=== PATIENT | female | born 1995 | race Caucasian/White ===

== ENCOUNTER 2017-04-28 05:03 | Emergency (ER) | payer MEDICAID ==
[~2017-04-28] VITALS: Ht 152.4 cm; Wt 100.2 kg
[2017-04-28 05:08] VITALS: BP 130/72
--- NOTE | 2017-04-28 05:13 | NUR ---
PT TAKEN TO BED 6
--- NOTE | 2017-04-28 05:17 | NUR ---
PATIENT PRESENTS TO ED WITH LOWER ABD PAIN, FOR 3DAYS, WITH HEMATURIA.PT VERBALIZED WHEN I PEE IT BURN AND I FELL NAUSEOUS. DENIES /V/D; SKIN IS PINK/WARM/DRY; AAOX4 WITH EVEN AND STEADY GAIT; LUNGS CLEAR BL; HR EVEN AND REGULAR; PT DENIES ANY FEVER, CP, SOB, OR COUGH AT THIS TIME; PATIENT STATES PAIN OF 9/10 AT THIS TIME; PATIENT POSITIONED FOR COMFORT; HOB ELEVATED; BEDRAILS UP X2; BED DOWN. ER MD MADE AWARE OF PT STATUS.
--- NOTE | 2017-04-28 05:37 | NUR ---
Dr. Munoz evaluating patient at bedside.
[2017-04-28] MEDS ORDERED: LEVOFLOXACIN 500 MG TAB PO ONE (05:50)
[2017-04-28] MEDS ORDERED: PHENAZOPYRIDINE 100 MG TAB PO ONE (05:50)
[2017-04-28 06:14] VITALS: BP 130/72
--- NOTE | 2017-04-28 06:15 | NUR ---
Patient discharged with v/s stable. Written and verbal after care instructions given and explained. Patient alert, oriented and verbalized understanding of instructions. Ambulatory with steady gait. All questions addressed prior to discharge. ID band removed. Patient advised to follow up with PMD. Rx of MACROBID AND PYRIDIUM given. Patient educated on indication of medication including possible reaction and side effects. Opportunity to ask questions provided and answered. ENCOURAGED FLUID INTAKE AND PT AGREED WITH IT
== END 2017-04-28 06:15 | disposition home or self-care (01) ==
LOC: MED 05:03
DX: N30.01 Acute cystitis with hematuria (principal); R03.0 Elevated blood-pressure reading, without diagnosis of hypertension
CPT/HCPCS: 81002; 81025; 99283

== ENCOUNTER 2017-07-02 22:29 | Emergency (ER) | payer MEDICAID ==
[~2017-07-02] VITALS: Ht 152.4 cm; Wt 102.1 kg
[2017-07-02 22:42] VITALS: BP 140/81
[2017-07-02] MEDS ORDERED: IBUP-1842 PO (23:08)
[2017-07-02] MEDS ORDERED: AMOX500C25 PO (23:09)
--- NOTE | 2017-07-02 23:14 | NUR ---
PT TAKEN TO BED 6
--- NOTE | 2017-07-02 23:23 | NUR ---
Dr. Jeffrey evaluating patient at bedside.
--- NOTE | 2017-07-02 23:25 | NUR ---
21 Y/O F W/C/O TOOHACHE WITH FACE SWOLLEN ON THE LT. SIDE X 3 DAYS. MOTRIN TAKEN AT 1800, AMOXICILLIN 500 MG TAKEN ON HER OWN. APPOINTMENT WITH DENTIST TOMORROW. NO MEDICAL HX. NO OTHER S/S OF DISTRESS NOTED, ER MD MADE AWARE.
[2017-07-02 23:34] VITALS: BP 110/77
--- NOTE | 2017-07-02 23:44 | NUR ---
Patient discharged with v/s stable. Written and verbal after care instructions given and explained. Patient alert, oriented and verbalized understanding of instructions. Ambulatory with steady gait. All questions addressed prior to discharge. ID band removed. Patient advised to follow up with DENTIST. RX of NORCO given. Patient educated on indication of medication including possible reaction and side effects. Opportunity to ask questions provided and answered.
== END 2017-07-02 23:44 | disposition home or self-care (01) ==
LOC: MED 22:29
DX: K08.89 Other specified disorders of teeth and supporting structures (principal)
CPT/HCPCS: 99283

== ENCOUNTER 2018-10-02 18:10 | Emergency (ER) | payer MEDICAID ==
[~2018-10-02] VITALS: Ht 152.4 cm; Wt 87.5 kg
[~2018-10-02 18:10] MED LIST: AMOX500C25 PO; IBUP-1842 PO
[2018-10-02 18:27] VITALS: BP 114/71
--- NOTE | 2018-10-02 18:45 | NUR ---
22F BIB SELF C/O 05/23 HEADACHE X YESTERDAY. + BLURRY VISION, + DIZZINESS, + VOMITING X 2 TODAY, -DIARRHEA, PT ALSO STATES HER STOMACH IS HURTING, FEELS LIKE SOMETHING INSIDE JUMPING. PT WITH STEADY GAIT. PT IS AOX4 TO PERSON, PLACE, TIME, AND SITUATION. RR ARE EVEN AND UNLABORED. ABD SOFT AND NON TENDER. NAD. VSS. AWAITING ER MD GUERRA. WILL CONTINUE TO MONITOR.
--- NOTE | 2018-10-02 19:14 | NUR ---
Pt report given to Shama MCNAMARA. Transfer of care at this time.
--- NOTE | 2018-10-02 20:21 | NUR ---
PA AT BEDSIDE
[2018-10-02 20:53] VITALS: BP 111/68
--- NOTE | 2018-10-02 20:54 | NUR ---
Patient discharged with v/s stable. Written and verbal after care instructions given and explained. Patient alert, oriented and verbalized understanding of instructions. Ambulatory with to car. All questions addressed prior to discharge. ID band removed. Patient advised to follow up with PMD. Rx of antivert, motrin given. Patient educated on indication of medication including possible reaction and side effects. Opportunity to ask questions provided and answered.
== END 2018-10-02 20:54 | disposition home or self-care (01) ==
LOC: MED 18:10
DX: M54.2 Cervicalgia (principal); R42 Dizziness and giddiness; Z79.899 Other long term (current) drug therapy
CPT/HCPCS: 81002; 81025; 82948; 99283

== ENCOUNTER 2018-11-30 18:35 | Emergency (ER) | payer MEDICAID ==
[~2018-11-30] VITALS: Ht 152.4 cm; Wt 88.2 kg
[2018-11-30 19:04] VITALS: BP 118/76
--- NOTE | 2018-11-30 19:43 | NUR ---
PT BIB SELF FOR COUGH X2 DAYS. PT REPORTS CONSTANT MOIST/PRODUCTIVE COUGH AND THAT SHE COUGHED UP BRIGHT RED BLOOD TODAY. PT DENIES SOB, AIRWAY IS PATENT, RR SYMMETRICAL AND NON-LABORED, LUNG SOUNDS CLEAR THROUGHOUT. PT REPORTS PRESSURE HEADACE ON THE TOP OF HER HEAD, AND ACHY CP WHEN SHE COUGHS. PT AAOX4. VSS. ER MD TO SEE PT. HOB ELEVATED, BED IN LOWEST POSITION, SIDE RAILS UP X1. WILL CONTINUE TO MONITOR.
[2018-11-30] MEDS ORDERED: KETOROLAC 30 MG/ML VIAL IM ONE (19:50)
--- NOTE | 2018-11-30 20:44 | NUR ---
PT GOING TO X-RAY AT THIS TIME.
--- NOTE | 2018-11-30 20:48 | NUR ---
PT RETURNED FROM X-RAY AT THIS TIME.
--- NOTE | 2018-11-30 21:18 | NUR ---
PT RESTING IN BED COMFORTABLY. VSS. PT DENIES PAIN OR NAUSEA AT THIS TIME. NO SIGNS OF ACUTE DISTRESS. WILL CONTINUE TO MONITOR.
[2018-11-30 21:44] VITALS: BP 112/56
--- NOTE | 2018-11-30 21:44 | NUR ---
Patient discharged with v/s stable. Written and verbal after care instructions given and explained. Patient alert, oriented and verbalized understanding of instructions. Ambulatory with steady gait. All questions addressed prior to discharge. ID band removed. Patient advised to follow up with PMD. Rx of CODEINE/PROMETHAZINE, IBUPROFEN, AND TESSALON given. Patient educated on indication of medication including possible reaction and side effects. Opportunity to ask questions provided and answered.
== END 2018-11-30 21:44 | disposition home or self-care (01) ==
LOC: MED 18:35
DX: R05 Cough (principal); R07.9 Chest pain, unspecified; R50.9 Fever, unspecified; Z79.899 Other long term (current) drug therapy
CPT/HCPCS: 36415; 71045; 81002; 81025; 87804; 96372; 99284; J1885

== ENCOUNTER 2019-03-30 11:56 | Emergency (ER) | payer MEDICAID ==
[~2019-03-30] VITALS: Ht 152.4 cm; Wt 88.5 kg
[2019-03-30 12:03] VITALS: BP 118/65
--- NOTE | 2019-03-30 12:07 | NUR ---
Patient ambulated to bed 3 with family. RN evaluating patient at bedside.
--- NOTE | 2019-03-30 12:08 | NUR ---
Dr. Vang evaluating patient at bedside.
--- NOTE | 2019-03-30 12:08 | NUR ---
23 Y FEMALE BIB BOYFRIEND C/O LEFT LOWER QUADRANT PAIN, FLANK PAIN, DYSURIA 910 X3 WKS. +CONSTIPATION. LAST BM 4 DAYS AGO. -N/V. BOWEL SOUNDS ACTIVE IN ALL 4 QUADRANTS. ABDOMEN SOFT AND ROUND, NON-TENDER. STATES SHE HAS TAKEN TYLENOL WITH NO RELIEF. VSS AT THIS TIME. PT AA0X4. BED IS DOWN, LOCKED, BED RAIL X 1, ERMD TO SEE PT. NO MED HX.
[2019-03-30] MEDS ORDERED: KETOROLAC 60 MG/2 ML VIAL IM ONE (12:15)
--- NOTE | 2019-03-30 12:17 | NUR ---
PT AMB TO RESTROOM WITH STEADY GAIT
[2019-03-30 12:52] LABS: ANION GAP 9.8 (8-16); CARBON DIOXIDE 30.4 mmol/L (21-32); CREATININE 0.6 mg/dL (0.6-1.3); POTASSIUM 4.2 mmol/L (3.5-5.1)
[2019-03-30 12:58] LABS: ALBUMIN 3.4 g/dL (3.4-5.0); TOTAL BILIRUBIN 0.2 mg/dL (0.0-1.0)
[2019-03-30 13:00] LABS: BILIRUBIN,URINE NEGATIVE (NEGATIVE); BLOOD, URINE NEGATIVE (NEGATIVE); COLOR,URINE YELLOW (YELLOW); LEUKOCYTE ESTERASE ,URINE NEGATIVE (NEGATIVE); NITRITE, URINE NEGATIVE (NEGATIVE); PH,URINE 6.5 (5.0-9.0); UGLUCOSE NEGATIVE (NEGATIVE)
--- NOTE | 2019-03-30 13:00 | NUR ---
PAIN 4/10 AFTER TORADOL IM INJECTION.
[2019-03-30 13:04] LABS: APPEARANCE,URINE SLIGHTLY HAZY (CLEAR)
[2019-03-30 13:07] LABS: RBC,URINE NONE SEEN /HPF (0-5); WBC,URINE 0-5 /HPF (0-5)
[2019-03-30 15:20] VITALS: BP 125/72
--- NOTE | 2019-03-30 15:20 | NUR ---
Patient discharged with v/s stable. Written and verbal after care instructions given and explained. Patient alert, oriented and verbalized understanding of instructions. Ambulatory with steady gait. All questions addressed prior to discharge. ID band removed. Patient advised to follow up with PMD. Rx of MIRALAX, CEPHALEXIN, COLACE given. Patient educated on indication of medication including possible reaction and side effects. Opportunity to ask questions provided and answered.
[2019-03-30 17:28] LABS: WHITE BLOOD COUNT (AUTO) 9.1 K/uL (4.8-10.8)
[2019-03-30 17:29] LABS: HEMATOCRIT 37.8 % (36-48); HEMOGLOBIN 12.9 g/dL (12.0-16.0); MEAN CORPUSCULAR HEMOGLOBIN 30 pg (27-31); MEAN CORPUSCULAR HGB CONC 34 g/dL (33-37); MEAN CORPUSCULAR VOLUME 88.4 fL (80-94); PLATELET COUNT (AUTO) 257 K/uL (140-450); RED BLOOD CELL COUNT(AUTO) 4.28 MIL/uL (4.20-5.40); RED CELL DISTRIBUTION WIDTH 12.9 % (11.6-13.7)
[2019-03-30 17:30] LABS: BASOPHILS % (AUTO) 0.4 % (0.0-2.0); EOSINOPHILS # (AUTO) 0.2 K/uL (0-0.4); EOSINOPHILS % (AUTO) 2.6 % (0.0-4.0); LYMPHOCYTES # (AUTO) 2.3 K/uL (2.5-16.5); LYMPHOCYTES % (AUTO) 25.5 % (20.5-51.1); MONOCYTES # (AUTO) 0.4 K/uL (0.8-1.0); MONOCYTES % (AUTO) 4.3 % (1.7-9.3); NEUTROPHILS # (AUTO) 6.1 K/uL (1.8-7.7); NEUTROPHILS % (AUTO) 67.2 % (42.2-75.2)
== END 2019-03-30 15:20 | disposition home or self-care (01) ==
LOC: MED 11:56
DX: K59.00 Constipation, unspecified (principal); R30.0 Dysuria; R35.0 Frequency of micturition; Z79.2 Long term (current) use of antibiotics; Z79.1 Long term (current) use of non-steroidal anti-inflammatories (NSAID); Z98.51 Tubal ligation status
CPT/HCPCS: 36415; 80053; 81001; 81025; 85025; 96372; 99283; J1885

== ENCOUNTER 2019-04-03 11:38 | Emergency (ER) | payer MEDICAID ==
[~2019-04-03] VITALS: Ht 152.4 cm; Wt 91.2 kg
[2019-04-03 11:41] VITALS: BP 116/98
--- NOTE | 2019-04-03 11:50 | NUR ---
CAME IN FOR RECHECK, WAS HERE ON SATURDAY FOR ABDOMINAL PAIN. . DENIES N/V/D; SKIN IS PINK/WARM/DRY; AAOX4 WITH EVEN AND STEADY GAIT; LUNGS CLEAR BL; HR EVEN AND REGULAR; PT DENIES ANY FEVER, CP, SOB, OR COUGH AT THIS TIME; PATIENT STATES PAIN OF 4/10 AT THIS TIME; VSS; PATIENT POSITIONED FOR COMFORT; HOB ELEVATED; BEDRAILS UP X2; BED DOWN. ER MD MADE AWARE OF PT STATUS.
[2019-04-03 12:00] VITALS: BP 116/98
--- NOTE | 2019-04-03 12:00 | NUR ---
Patient discharged with v/s stable. Written and verbal after care instructions given and explained. Patient verbalized understanding. Ambulatory with steady gait. All questions addressed prior to discharge. Advised to follow up with PMD.
== END 2019-04-03 11:59 | disposition home or self-care (01) ==
LOC: MED 11:38
DX: M79.18 Myalgia, other site (principal); R10.32 Left lower quadrant pain; R19.7 Diarrhea, unspecified; Z79.899 Other long term (current) drug therapy
CPT/HCPCS: 99281

== ENCOUNTER 2019-05-22 11:58 | Emergency (ER) | payer MEDICAID ==
[~2019-05-22] VITALS: Ht 152.4 cm; Wt 90.7 kg
--- NOTE | 2019-05-22 11:58 | NUR ---
PT. ENRIQUETA TAKE TO BED 9
[2019-05-22 12:05] VITALS: BP 122/78
--- NOTE | 2019-05-22 12:05 | NUR ---
23 Y/O FEMALE C/O OF DIZZINESS AND NUMBNESS AFTER TAKING 200 MG OF TRAMADOL FOR RIGHT KNEE PAIN AT A [employer] CLASS. KNEE PAIN STARTED YESTERDAY BUT DENIES PAIN AT THIS TIME. PER EMS, BLOOD GLUCOSE IS 116 MG/DL AND 4MG OF ZOFRAN WAS GIVEN. VSS STABLE. PMH: NONE RX:NONE ALLERGIES: NONE
[2019-05-22] MEDS ORDERED: NACL 0.9% 1,000 ML IV ONE ×2 (12:10→13:55)
--- NOTE | 2019-05-22 12:22 | NUR ---
X-RAY AT BEDSIDE.
--- NOTE | 2019-05-22 13:48 | NUR ---
PT. VOMITED 10ML OF GREEN/YELLOW VOMITUS. FINE TREMORS NOTED. NOTIFIED .
[2019-05-22] MEDS ORDERED: ONDANSETRON 4 MG/2 ML VIAL IVP ONE (13:50)
[2019-05-22] MEDS ORDERED: LORazepam 2 MG/ML VIAL IVP ONE (13:50)
--- NOTE | 2019-05-22 15:00 | NUR ---
PT STATES SHE IS STILL DIZZY, LETHARGIC. VSS. PER ER OKAY TO DISCHARGE.
[2019-05-22 15:01] VITALS: BP 111/72
--- NOTE | 2019-05-22 15:01 | NUR ---
Patient discharged with v/s stable. Written and verbal after care instructions given and explained. Patient verbalized understanding. PT WHEELCHAIRED TO CAR, WITH PT. All questions addressed prior to discharge. Advised to follow up with PMD.
--- NOTE | 2019-05-22 15:01 | NUR ---
Geno beard in ED - 05/22/19 at 1519 by JASON Patient discharged with v/s stable. Written and verbal after care instructions given and explained. Patient verbalized understanding. Ambulatory with steady gait. All questions addressed prior to discharge. Advised to follow up with PMD.
== END 2019-05-22 15:01 | disposition home or self-care (01) ==
LOC: MED 11:58
DX: T40.4X1A Poisoning by other synthetic narcotics, accidental (unintentional), initial encounter (principal); M25.561 Pain in right knee; R42 Dizziness and giddiness; Z79.899 Other long term (current) drug therapy; Y92.89 Other specified places as the place of occurrence of the external cause
CPT/HCPCS: 73562; 96361; 96374; 96375; 99283; J2060; J2405; J7030; Q0092

== ENCOUNTER 2020-03-23 14:29 | Emergency (ER) | payer MEDICAID ==
[~2020-03-23] VITALS: Ht 152.4 cm; Wt 87.5 kg
[2020-03-23 14:31] VITALS: BP 120/58
--- NOTE | 2020-03-23 14:37 | NUR ---
PT AMB TO BATHROOM STEADY GAIT TO PROVIDE URINE SAMPLE
--- NOTE | 2020-03-23 14:43 | NUR ---
DR. MYERS EVALUATING PT AT BEDSIDE
--- NOTE | 2020-03-23 14:46 | NUR ---
24/F APPROXIMATELY 8 WEEKS , LMP 01/27/20 C/O LOWER ABD/SUPRAPUBIC PAIN X 2 DAYS WITH LIGHT PINK SPOTTING (UNKNOWN VAGINAL OR URETHRAL) AND DYSURIA. STATES NAUSEA WITHOUT VOMITING. DENIES F/C, DIARRHEA. VSS. NAD. MEDHX: DENIES
--- NOTE | 2020-03-23 14:50 | NUR ---
RAVELER AT BEDSIDE FOR BLOOD DRAW
--- NOTE | 2020-03-23 14:52 | NUR ---
URINE SAMPLE HANDED TO SAP SPECIALIST AT BEDSIDE
--- NOTE | 2020-03-23 14:53 | NUR ---
U/S TECH AT BEDSIDE
[2020-03-23 15:09] LABS: BASOPHILS # (AUTO) 0.1 K/uL (0.00-0.22); BASOPHILS % (AUTO) 0.8 % (0.0-2.0); EOSINOPHILS # (AUTO) 0.2 K/uL (0-0.4); EOSINOPHILS % (AUTO) 2.7 % (0.0-4.0); HEMATOCRIT 37.9 % (36-48); HEMOGLOBIN 12.6 g/dL (12.0-16.0); LYMPHOCYTES # (AUTO) 2.2 K/uL (2.5-16.5); LYMPHOCYTES % (AUTO) 23.2 % (20.5-51.1); MEAN CORPUSCULAR HEMOGLOBIN 30 pg (27-31); MEAN CORPUSCULAR HGB CONC 33 g/dL (33-37); MEAN CORPUSCULAR VOLUME 89.6 fL (80-94); MONOCYTES # (AUTO) 0.5 K/uL (0.8-1.0); MONOCYTES % (AUTO) 5.9 % (1.7-9.3); NEUTROPHILS # (AUTO) 6.2 K/uL (1.8-7.7); NEUTROPHILS % (AUTO) 67.4 % (42.2-75.2); PLATELET COUNT (AUTO) 245 K/uL (140-450); RED BLOOD CELL COUNT(AUTO) 4.23 MIL/uL (4.20-5.40); RED CELL DISTRIBUTION WIDTH 12.5 % (11.6-13.7); WHITE BLOOD COUNT (AUTO) 9.3 K/uL (4.8-10.8)
[2020-03-23 15:17] LABS: BILIRUBIN,URINE NEGATIVE (NEGATIVE); BLOOD, URINE 1+ (NEGATIVE); COLOR,URINE YELLOW (YELLOW); LEUKOCYTE ESTERASE ,URINE 2+ (NEGATIVE); NITRITE, URINE NEGATIVE (NEGATIVE); PH,URINE 6.5 (5.0-9.0); UGLUCOSE NEGATIVE (NEGATIVE)
[2020-03-23 15:18] LABS: APPEARANCE,URINE HAZY (CLEAR)
[2020-03-23 15:50] LABS: RBC,URINE 0-5 /HPF (0-5)
[2020-03-23 16:33] VITALS: BP 126/64
== END 2020-03-23 16:33 | disposition home or self-care (01) ==
LOC: MED 14:29
DX: O20.0 Threatened abortion (principal); O23.40 Unspecified infection of urinary tract in pregnancy, unspecified trimester; Z3A.08 8 weeks gestation of pregnancy; Z79.899 Other long term (current) drug therapy
CPT/HCPCS: 36415; 76817; 81001; 81025; 84702; 85025; 86900; 86901; 87086; 87186; 99284; Q0092

== ENCOUNTER 2020-04-04 18:59 | Emergency (ER) | payer MEDICAID ==
[~2020-04-04] VITALS: Ht 152.4 cm; Wt 88.5 kg
[2020-04-04 19:15] VITALS: BP 108/62
--- NOTE | 2020-04-04 19:21 | NUR ---
urine cup handed to pt for sample
[2020-04-04] MEDS ORDERED: NACL 0.9% 500 ML IV ONE (19:28)
--- NOTE | 2020-04-04 19:37 | NUR ---
Dr. Munoz examining patient.
--- NOTE | 2020-04-04 19:42 | NUR ---
LT AC IV SITE ESTABLISHED. 18G. FLUSHED WITH NS. PATENT. TOLERATED WELL.
--- NOTE | 2020-04-04 19:45 | NUR ---
LABS DRAWN AND SENT TO LAB.
--- NOTE | 2020-04-04 19:54 | NUR ---
NS 100CC/HR STARTED ON LT IV SITE.
--- NOTE | 2020-04-04 19:55 | NUR ---
G1 T0 L0 24F PRESENTS TO ED WITH C/O RUQ ABDOMINAL PAIN. PT IS 5 WEEKS . LMP 01/27/2020. 8/10 ABDOMINAL PAIN THAT IS RADIATING TO LOWER BACK. RUQ TENDER UPON PALPATION. ALL OTHER QUADRANTS SOFT AND NON TENDER. +N/V/D. DENIES HEMATOCHEZIA. +DYSURIA. NO VAGINAL DISCHARGE SUBJECTIVELY STATED BY PATIENT. DENIES HEADACHE, BLURRY VISION. DENIES SOB/COUGH. CBL SOUNDS. RR EVEN AND UNLABORED. HEART SOUNDS EVEN AND REGULAR. PT TAKING PRENATALS DAILY. PMHX: PRE-DIABETES RX: PRE-. NKA. NEGATIVE FOR COVID SCREENING. WEARING MASK.
[2020-04-04 19:57] LABS: BASOPHILS # (AUTO) 0.1 K/uL (0.00-0.22); BASOPHILS % (AUTO) 1.1 % (0.0-2.0); EOSINOPHILS # (AUTO) 0.2 K/uL (0-0.4); EOSINOPHILS % (AUTO) 2.1 % (0.0-4.0); HEMATOCRIT 37.3 % (36-48); HEMOGLOBIN 12.6 g/dL (12.0-16.0); LYMPHOCYTES # (AUTO) 2.4 K/uL (2.5-16.5); LYMPHOCYTES % (AUTO) 23.3 % (20.5-51.1); MEAN CORPUSCULAR HEMOGLOBIN 30 pg (27-31); MEAN CORPUSCULAR HGB CONC 34 g/dL (33-37); MEAN CORPUSCULAR VOLUME 89.5 fL (80-94); MONOCYTES # (AUTO) 0.6 K/uL (0.8-1.0); MONOCYTES % (AUTO) 5.6 % (1.7-9.3); NEUTROPHILS # (AUTO) 7.1 K/uL (1.8-7.7); NEUTROPHILS % (AUTO) 67.9 % (42.2-75.2); PLATELET COUNT (AUTO) 222 K/uL (140-450); RED BLOOD CELL COUNT(AUTO) 4.17 MIL/uL (4.20-5.40); RED CELL DISTRIBUTION WIDTH 12.7 % (11.6-13.7); WHITE BLOOD COUNT (AUTO) 10.5 K/uL (4.8-10.8)
[2020-04-04 19:59] LABS: APPEARANCE,URINE CLEAR (CLEAR); BILIRUBIN,URINE NEGATIVE (NEGATIVE); BLOOD, URINE TRACE-I (NEGATIVE); COLOR,URINE YELLOW (YELLOW); LEUKOCYTE ESTERASE ,URINE NEGATIVE (NEGATIVE); NITRITE, URINE NEGATIVE (NEGATIVE); UGLUCOSE NEGATIVE (NEGATIVE)
--- NOTE | 2020-04-04 20:09 | NUR ---
Ultrasound at bedside.
[2020-04-04 20:14] LABS: ALBUMIN 3.4 g/dL (3.4-5.0); ANION GAP 9.7 (8-16); CARBON DIOXIDE 30.3 mmol/L (21-32); CREATININE 0.6 mg/dL (0.6-1.3); TOTAL BILIRUBIN 0.2 mg/dL (0.0-1.0)
--- NOTE | 2020-04-04 20:37 | NUR ---
PT ALERT AND AWAKE, BREATHING EVEN AND UNLABORED. NOTIFIED WE ARE WAITING FOR RESULTS
--- NOTE | 2020-04-04 20:43 | NUR ---
AT BEDSIDE EXAMINING PT
--- NOTE | 2020-04-04 21:00 | NUR ---
Patient discharged with v/s stable. Written and verbal after care instructions about abdominal pain during given and explained. Patient alert, oriented and verbalized understanding of instructions. Ambulatory with steady gait. All questions addressed prior to discharge. ID band removed. Patient advised to follow up with PMD. Rx of tylenol given. Patient educated on indication of medication including possible reaction and side effects. Opportunity to ask questions provided and answered.
[2020-04-04 21:03] VITALS: BP 113/62
== END 2020-04-04 21:00 | disposition home or self-care (01) ==
LOC: MED 18:59
DX: O26.891 Other specified pregnancy related conditions, first trimester (principal); R10.11 Right upper quadrant pain; R10.12 Left upper quadrant pain; Z3A.01 Less than 8 weeks gestation of pregnancy; Z79.899 Other long term (current) drug therapy
CPT/HCPCS: 36415; 76801; 80053; 81003; 83690; 84702; 85025; 96360; 99284; J7030; Q0092

== ENCOUNTER 2020-05-11 20:43 | Emergency (ER) | payer MEDICAID, SELFPAY ==
[~2020-05-11] VITALS: Ht 152.4 cm; Wt 86.6 kg
[2020-05-11 20:45] VITALS: BP 129/69
--- NOTE | 2020-05-11 21:09 | NUR ---
PT AMBULATED TO ERBED 9 W/ STEADY GAIT.
--- NOTE | 2020-05-11 21:10 | NUR ---
24 YO F BIB SELF FOR C/C OF FEVER, THOMAS, N/V/D X4 DAYS. PT IS 14 WEEKS AND HAS BEEN ISOLATING BUT HER HAS BEEN WORKING AND ALSO HAS FEVER AND BODY ACHES X2 DAYS. PT DENIES TAKING ANY OTCS MEDS FOR SYMPTOMS DUE TO . DENIES SOB, COUGH, OR BODY ACHES. NKA NO MED HX NO RX
--- NOTE | 2020-05-11 21:16 | NUR ---
PT AMBULATED TO RR TO PROVIDE URINE SAMPLE
--- NOTE | 2020-05-11 21:18 | NUR ---
PT AMBULATED BACK TO BED 9
--- NOTE | 2020-05-11 21:31 | NUR ---
Dr. Rojas examining patient.
[2020-05-11] MEDS ORDERED: ACETAMINOPHEN 325 MG TAB PO STA (21:40)
--- NOTE | 2020-05-11 21:40 | NUR ---
TYLENOL 1000MG ADMISTERED PO. NADR. UNABLE TO CHART IN EMAR.
[2020-05-11] MEDS ORDERED: ACETAMINOPHEN EXTRA STRENGTH 500 MG TAB ONE (21:42)
--- NOTE | 2020-05-11 21:50 | NUR ---
ORAL COVID SWABS COLLECTED AND SENT TO LAB
[2020-05-11 22:13] VITALS: BP 129/69
--- NOTE | 2020-05-11 22:13 | NUR ---
Geno beard in ED - 05/11/20 at 2216 by SILVIA Patient discharged with v/s stable. Written and verbal after care instructions given and explained. Patient verbalized understanding. Ambulatory with steady gait. All questions addressed prior to discharge. Advised to follow up with PMD.
== END 2020-05-11 22:13 | disposition home or self-care (01) ==
LOC: MED 20:43
DX: B34.9 Viral infection, unspecified (principal); R73.03 Prediabetes; Z20.828 Contact with and (suspected) exposure to other viral communicable diseases; Z79.899 Other long term (current) drug therapy
CPT/HCPCS: 81002; 81025; 99283; U0003

== ENCOUNTER 2020-06-10 22:18 | Emergency (ER) | payer MEDICAID, SELFPAY ==
[~2020-06-10] VITALS: Ht 152.4 cm; Wt 89.4 kg
[2020-06-10 22:32] VITALS: BP 109/64
--- NOTE | 2020-06-10 22:40 | NUR ---
PT AMBULATED TO ER BED # 7
--- NOTE | 2020-06-10 22:45 | NUR ---
24 Y/O 17 WEEK C/O SUPRAPUBIC PAIN X 1 DAY . PT STATES THE PAIN IS INTERMITTENT , 8/10 , CRAMPING / TIGHTENING TYPE OF PAIN. PT STATES THIS MORNING SHE STARTED HAVING PINK TINGED VAGINAL DISCHARGE . PT STATES SHE GOT WORRIED AND CONTACTED HER OBGYN WHO TOLD HER TO GO TO THE ER TO BE CHECKED OUT. PT +DYSURIA . PT DENIES N/V/D/CONSTIPATION/FEVER/BODY ACHES/ CP. PT ABD ROUND , SOFT AND NON TENDER. ACTIVE BOWEL SOUNDS IN ALL QUADRANTS . PT LBM 06/10/ - PER PT NORMAL BOWEL MOVEMENT. A/O X 4 , RR EVEN AND UNLABORED. PT PLACED IN GOWN. PT RESTING IN BED, LOCKED AND IN LOWEST POSITION, HOB ELEVATED, SIDE RAIL X2 FOR PT SAFETY. PMH: PRE HEIDI HEATH
--- NOTE | 2020-06-10 22:48 | NUR ---
PT PROVIDED URINE SAMPLE AT THIS TIME.
--- NOTE | 2020-06-10 23:04 | NUR ---
DR CRUZ AT BEDSIDE FOR MSE.
[2020-06-10 23:26] LABS: BILIRUBIN,URINE NEGATIVE (NEGATIVE); BLOOD, URINE NEGATIVE (NEGATIVE); COLOR,URINE YELLOW (YELLOW); LEUKOCYTE ESTERASE ,URINE NEGATIVE (NEGATIVE); NITRITE, URINE NEGATIVE (NEGATIVE); PH,URINE 6.5 (5.0-9.0); UGLUCOSE NEGATIVE (NEGATIVE)
[2020-06-10 23:31] LABS: APPEARANCE,URINE HAZY (CLEAR)
--- NOTE | 2020-06-10 23:36 | NUR ---
US AT BEDSIDE
[2020-06-10 23:48] LABS: RBC,URINE 0-5 /HPF (0-5); WBC,URINE 0-5 /HPF (0-5)
--- NOTE | 2020-06-11 01:28 | NUR ---
pt ambulated to restroom w/ steady gait.
[2020-06-11 01:53] VITALS: BP 128/76
== END 2020-06-11 01:53 | disposition home or self-care (01) ==
LOC: MED 22:18
DX: O23.42 Unspecified infection of urinary tract in pregnancy, second trimester (principal); O46.8X2 Other antepartum hemorrhage, second trimester; E11.9 Type 2 diabetes mellitus without complications; Z79.2 Long term (current) use of antibiotics; Z79.899 Other long term (current) drug therapy
CPT/HCPCS: 76805; 81001; 81025; 99284; Q0092; 99283

== ENCOUNTER 2020-06-18 22:29 | Emergency (ER) | payer MEDICAID, SELFPAY ==
[~2020-06-18] VITALS: Ht 152.4 cm; Wt 91.2 kg
[2020-06-18 22:40] VITALS: BP 114/61
--- NOTE | 2020-06-18 22:48 | NUR ---
PT TAKEN TO BED 7
[2020-06-18] MEDS ORDERED: DOPPLER MC ONE (23:18)
--- NOTE | 2020-06-18 23:23 | NUR ---
HEART TONES 160-165 BPM
--- NOTE | 2020-06-18 23:30 | NUR ---
PT WAS SEEN HERE LAST WEEK FOR UTI SYMPTOMS OF BURNING AND FREQUENCY, GIVEN KEFLEX WHICH SHE CONPLETED BUT THE SYMPTOMS NEVER WENT AWAY, STILL HAS BURNING AND FREQUENCY. DENIES ANY ABD PAIN OR FLANK PAIN, AFEBRILE, DENIES N/V. PT CURRENTLY 16 WEEKS . NO ISSUES WITH . NKA NO HX
--- NOTE | 2020-06-18 23:43 | NUR ---
providing relief for primary RN Chanel. assumed pt care at this time.
--- NOTE | 2020-06-18 23:52 | NUR ---
Dr. Arenas at bedside.
--- NOTE | 2020-06-18 23:52 | NUR ---
Geno beard in [facility] - 06/18/[address] at [address] Arenas examining patient.
[2020-06-19 00:16] VITALS: BP 119/70
== END 2020-06-19 00:17 | disposition home or self-care (01) ==
LOC: MED 22:29
DX: O23.42 Unspecified infection of urinary tract in pregnancy, second trimester (principal); E11.9 Type 2 diabetes mellitus without complications; R73.03 Prediabetes; Z79.2 Long term (current) use of antibiotics; Z79.899 Other long term (current) drug therapy; Z3A.18 18 weeks gestation of pregnancy
CPT/HCPCS: 81002; 81025; 87086; 99283

== ENCOUNTER 2020-08-25 17:00 | Observation (INO) | payer MEDICAID, SELFPAY ==
[~2020-08-25] VITALS: Ht 152.4 cm; Wt 95.7 kg
[2020-08-25] MEDS ORDERED: LACTATED RINGERS 1,000 ML IV SCH (17:50)
[2020-08-25 18:14] LABS: BASOPHILS # (AUTO) 0.1 K/uL (0.00-0.22); BASOPHILS % (AUTO) 0.9 % (0.0-2.0); EOSINOPHILS # (AUTO) 0.1 K/uL (0-0.4); EOSINOPHILS % (AUTO) 1.4 % (0.0-4.0); HEMATOCRIT 35.5 % (36-48); LYMPHOCYTES # (AUTO) 1.5 K/uL (2.5-16.5); LYMPHOCYTES % (AUTO) 16.3 % (20.5-51.1); MEAN CORPUSCULAR HEMOGLOBIN 29 pg (27-31); MEAN CORPUSCULAR HGB CONC 34 g/dL (33-37); MEAN CORPUSCULAR VOLUME 86.4 fL (80-94); MONOCYTES # (AUTO) 0.5 K/uL (0.8-1.0); MONOCYTES % (AUTO) 5.2 % (1.7-9.3); NEUTROPHILS # (AUTO) 7.1 K/uL (1.8-7.7); NEUTROPHILS % (AUTO) 76.2 % (42.2-75.2); PLATELET COUNT (AUTO) 236 K/uL (140-450); RED BLOOD CELL COUNT(AUTO) 4.11 MIL/uL (4.20-5.40); WHITE BLOOD COUNT (AUTO) 9.3 K/uL (4.8-10.8)
[2020-08-25 18:22] LABS: APPEARANCE,URINE CLEAR (CLEAR); BILIRUBIN,URINE NEGATIVE (NEGATIVE); BLOOD, URINE NEGATIVE (NEGATIVE); COLOR,URINE YELLOW (YELLOW); LEUKOCYTE ESTERASE ,URINE NEGATIVE (NEGATIVE); NITRITE, URINE NEGATIVE (NEGATIVE); UGLUCOSE NEGATIVE (NEGATIVE)
[2020-08-25 18:26] LABS: ALBUMIN 2.5 g/dL (3.4-5.0); ANION GAP 11.2 (8-16); CARBON DIOXIDE 26.6 mmol/L (21-32); CREATININE 0.5 mg/dL (0.6-1.3); POTASSIUM 3.8 mmol/L (3.5-5.1); TOTAL BILIRUBIN 0.2 mg/dL (0.0-1.0)
[2020-08-25 18:32] VITALS: BP 108/59
[2020-08-25] MEDS ORDERED: ACETAMINOPHEN EXTRA STRENGTH 500 MG TAB PO PRN (20:15)
[2020-08-25] MEDS ORDERED: ACETAMINOPHEN EXTRA STRENGTH 500 MG TAB ONE (20:16)
== END 2020-08-25 23:30 | disposition home or self-care (01) ==
LOC: MLD 17:00 → UNDOADMOB 17:43 → MLD 17:43
PROVIDERS: ADMIT Obstetrics & Gynecology; ATTEND Obstetrics & Gynecology
DX: O26.892 Other specified pregnancy related conditions, second trimester (principal); Z20.828 Contact with and (suspected) exposure to other viral communicable diseases; R51.9 Headache, unspecified; R10.9 Unspecified abdominal pain; Z3A.27 27 weeks gestation of pregnancy
CPT/HCPCS: 36415; 59025; 80053; 81003; 85025; 86886; 86900; 86901; 87426; 96360; 96361; G0378; J7120

== ENCOUNTER 2022-04-11 04:07 | Emergency (ER) | payer MEDICAID ==
[~2022-04-11] VITALS: Ht 152.4 cm; Wt 96.6 kg
[2022-04-11 04:20] VITALS: BP 145/99
--- NOTE | 2022-04-11 04:20 | NUR ---
TO BED AMBULATORY
--- NOTE | 2022-04-11 04:22 | NUR ---
SEEN AND EXAMINED BY CESAR
[2022-04-11] MEDS ORDERED: DOCO1CRE TP (04:26)
[2022-04-11] MEDS ORDERED: ACET-8386 PO (04:26)
[2022-04-11] MEDS ORDERED: ACYC400T14 PO (04:26)
[2022-04-11 04:32] VITALS: BP 145/99
--- NOTE | 2022-04-11 04:32 | NUR ---
Patient discharged with v/s stable. Written and verbal after care instructions given and explained. Patient alert, oriented and verbalized understanding of instructions. Ambulatory with steady gait. All questions addressed prior to discharge. ID band removed. Patient advised to follow up with PMD. Rx of ZOVIRAX, HYDROCODONE given. Patient educated on indication of medication including possible reaction and side effects. Opportunity to ask questions provided and answered.
== END 2022-04-11 04:32 | disposition home or self-care (01) ==
LOC: MED 04:07
DX: B00.9 Herpesviral infection, unspecified (principal)
CPT/HCPCS: 99283

== ENCOUNTER 2023-04-03 08:32 | Emergency (ER) | payer MEDICAID ==
[~2023-04-03] VITALS: Ht 152.4 cm; Wt 113.4 kg
[~2023-04-03 08:32] MED LIST changes: +ACET-8905 PO; +ACYC400T14 PO; -AMOX500C25 PO; +DOCO1CRE TP; -IBUP-1842 PO
[2023-04-03 08:35] VITALS: BP 122/72
--- NOTE | 2023-04-03 08:35 | NUR ---
to bed ambulatory
--- NOTE | 2023-04-03 08:48 | NUR ---
PT SWABBED FOR STREP AT THIS TIME AND SENT TO LAB
--- NOTE | 2023-04-03 08:50 | NUR ---
27 Y/O FEMALE PATIENT PRESENTS TO ED WITH COUGH, SORE THROAT, SUBJECTIVE FEVER FOR 3 DAYS. STATES SHE TOOK MOTRIN AT 0300 TODAY. DENIES N/V/D; SKIN IS PINK/WARM/DRY; AAOX4 WITH EVEN AND STEADY GAIT; LUNGS CLEAR BL; HR EVEN AND REGULAR; VSS; PATIENT POSITIONED FOR COMFORT; HOB ELEVATED; BEDRAILS UP X2; BED DOWN. ER MD MADE AWARE OF PT STATUS. PMH: DENIES NKA
[2023-04-03] MEDS ORDERED: IBUP-2213 PO (08:51)
[2023-04-03] MEDS ORDERED: PRED50TA2 PO (08:51)
[2023-04-03] MEDS ORDERED: BENZ-300 PO (08:51)
[2023-04-03] MEDS ORDERED: PENI500T20 PO (08:51)
[2023-04-03 09:22] VITALS: BP 122/72
--- NOTE | 2023-04-03 09:22 | NUR ---
Patient discharged with v/s stable. Written and verbal after care instructions given and explained. Patient alert, oriented and verbalized understanding of instructions. Ambulatory with steady gait. All questions addressed prior to discharge. ID band removed. Patient advised to follow up with PMD. Rx of BENZOCAINE,IBUPROFEN, PENICILLIN, PREDNISONE (SENT) given. Patient educated on indication of medication including possible reaction and side effects. Opportunity to ask questions provided and answered. WORK NOTE GIVEN
== END 2023-04-03 09:22 | disposition home or self-care (01) ==
LOC: MED 08:32
DX: A69.0 Necrotizing ulcerative stomatitis (principal); Z79.899 Other long term (current) drug therapy
CPT/HCPCS: 87081; 99283

== ENCOUNTER 2023-05-09 22:36 | Emergency (ER) | payer MEDICAID ==
[~2023-05-09] VITALS: Ht 152.4 cm; Wt 104.3 kg
[~2023-05-09 22:36] MED LIST changes: +BENZ-300 PO; +IBUP-2213 PO; +PENI500T20 PO; +PRED50TA2 PO
[2023-05-09 23:05] VITALS: BP 126/75; PULSE 77; RESP 17; TEMP 97.7; O2SAT 97
--- NOTE | 2023-05-09 23:05 | NUR ---
TO LOBBY A/W BED AMBULATORY
[2023-05-10] MEDS ORDERED: IBUP-2213 PO (00:18)
[2023-05-10] MEDS ORDERED: AMOX-1230 PO (00:18)
[2023-05-10 00:29] VITALS: BP 126/75; PULSE 77; RESP 17; TEMP 97.7; O2SAT 97
--- NOTE | 2023-05-10 00:29 | NUR ---
D/C, LEFT WITHOUT PAPERWORK
== END 2023-05-10 00:29 | disposition home or self-care (01) ==
LOC: MED 22:36
DX: K08.89 Other specified disorders of teeth and supporting structures (principal); Z79.899 Other long term (current) drug therapy
CPT/HCPCS: 99281